=== PATIENT | female | born 1965 | race Two or more races ===

== ENCOUNTER → 2024-01-01 | Outpatient (CLI) | payer MEDICAID ==
[2024-01-01 15:20] LABS: Alanine Aminotransferase 13 U/L (7-40); Albumin 4.5 g/dL (3.2-4.8); Alkaline Phosphatase 81 U/L (46-116); Aspartate Aminotransferase 18 U/L (13-40); Bilirubin, Direct < 0.1 mg/dL (<0.3); Bilirubin, Total 0.3 mg/dL (0.2-1.0); Total Protein 7.4 g/dL (5.7-8.2)
== END | disposition home or self-care (01) ==
LOC: LAB 13:50
PROVIDERS: ATTEND Internal Medicine
DX: E78.5 Hyperlipidemia, unspecified (principal)
CPT/HCPCS: 36415; 80076

== ENCOUNTER → 2024-03-15 | Outpatient (CLI) | payer MEDICAID | END | disposition home or self-care (01) | LOC: Rad HDHVI 10:04 | PROVIDERS: ATTEND Internal Medicine Cardiovascular Disease | DX: I65.21 Occlusion and stenosis of right carotid artery (principal); I25.84 Coronary atherosclerosis due to calcified coronary lesion; R42 Dizziness and giddiness | CPT/HCPCS: 93880 ==

== ENCOUNTER → 2024-03-24 | Outpatient (CLI) | payer MEDICAID ==
[~2024-03-24] VITALS: Ht 167.6 cm; Wt 70.8 kg
== END | disposition home or self-care (01) ==
LOC: Rad HDHVI 08:32
PROVIDERS: ATTEND Internal Medicine Cardiovascular Disease
DX: Z13.0 Encounter for screening for diseases of the blood and blood-forming organs and certain disorders involving the immune mechanism (principal); R42 Dizziness and giddiness; E78.00 Pure hypercholesterolemia, unspecified; F17.210 Nicotine dependence, cigarettes, uncomplicated
CPT/HCPCS: 78452; 93017; 96374; A9500

== ENCOUNTER → 2024-04-13 | Outpatient (CLI) | payer MEDICAID | END | disposition home or self-care (01) | LOC: Rad HDHVI 09:04 | PROVIDERS: ATTEND Internal Medicine Cardiovascular Disease | DX: Z13.6 Encounter for screening for cardiovascular disorders (principal); I08.1 Rheumatic disorders of both mitral and tricuspid valves | CPT/HCPCS: 93306 ==

== ENCOUNTER 2024-11-19 07:30 | Emergency (ER) | payer MEDICAID ==
[~2024-11-19] VITALS: Ht 167.6 cm; Wt 67.8 kg
--- NOTE | 2024-11-19 07:50 | ED.PDOC ---
History of Present Illness(SKN HPI Comments 59Y F with PMHx HLD presents to ED for chief complaint pruritus of bilateral feet [id number]. Pt states she had a rash 4 years ago but has not had the rash since then. Now, pt states she has bumps on the lateral aspects of both feet and develops black spots after wearing lotion. Pt states she soaks her feet every morning and experiences mild relief of symptoms. Pt denies chest pain, SOB, n/v/d, and all other symptoms. Pt denies all pain with current pain level 0/10. Pt is being f/u by dermatology and infectious disease specialist, who have prescribed her an oral antifungal medication. No other symptoms reported. Chief Complaint: Rash Time Seen by MD: 07:40 History of Present Illness: Nurses Notes, Medications, Allergies Allergies: Coded Allergies: No Known Drug Allergy (Verified Allergy, Unknown, 03/24/24) Information Source: Patient Mode of Arrival: Ambulatory Severity: Mild Timing: Months Duration: Intermittent Prehospital treatment: None Location: Foot (bilateral) Mechanism: Spontaneous Onset Developed: Pruritus, Rash Occurence: Outdoors Object: None Retained Foreign Body: No Wound Type: None Immunization Status of Animal: NA Tetanus: UTD History of: None Associated Signs and Symptoms: Other Past Medical History PAST MEDICAL HISTORY: High Lipids Surgical History: Denies all surgeries SHANK STITCHER History: Denies all SHANK STITCHER Hx Family History Family History: Unknown Social History Smoker: Cigarettes Alcohol: Occasionally Drugs: Denies Drug Use Lives In: Home Constitutional: denies: chills, diaphoresis, fatigue, fever, malaise, sweats, weakness, others EENTM: denies: blurred vision, double vision, ear bleeding, ear discharge, ear drainage, ear pain, ear ringing, eye pain, eye redness, hearing loss, mouth pain, mouth swelling, nasal discharge, nose bleeding, nose congestion, nose pain, photophobia, tearing, throat pain, throat swelling, voice changes, others Respiratory: denies: cough, hemoptysis, orthopnea, SOB at rest, shortness of breath, SOB with excertion, stridor, wheezing, others Cardiovascular: denies: chest pain, dizzy spells, diaphoresis, Dyspnea on exertion, edema, irregular heart beat, left arm pain, lightheadedness, palpitations, PND, syncope, others Gastrointestinal: denies: abdomen distended, abdominal pain, blood streaked bowels, constipated, diarrhea, dysphagia, difficulty swallowing, hematemesis, melena, nausea, poor appetite, poor fluid intake, rectal bleeding, rectal pain, vomiting, others Genitourinary: denies: abnormal vagina bleeding, burning, dyspareunia, dysuria, flank pain, frequency, hematuria, incontinence, pain, , vagina discharge, urgency, others Neurological: denies: dizziness, fainting, headache, left sided numbness, left sided weakness, numbness, paresthesia, pre-existing deficit, right sided numbness, right sided weakness, seizure, speech problems, tingling, tremors, weakness, others Musculoskeletal: denies: back pain, gout, joint pain, joint swelling, muscle pain, muscle stiffness, neck pain, others Integumetry: reports: others (pruritus, bilateral feet intermittent rash); denies: bruises, change in color, change in hair/nails, dryness, laceration, lesions, lumps, rash, wounds Allergic/Immunocompromised: denies: Difficulty Healing, Frequent Infections, Hives, Itching, others Hematologic/Lymphatic: denies: anemia, blood clots, easy bleeding, easy bruising, swollen glands, others Endocrine: denies: excessive hunger, excessive sweating, excessive thirst, excessive urination, flushing, intolerance to cold, intolerance to heat, unexplained weight gain, unexplained weight loss, others Psychiatric: denies: anxiety, bipolar disorder, depression, hopeless, panic disorder, schizophrenia, sleepless, suicidal, others All Other Systems: Reviewed and Negative Physical Exam General Appearance: No Apparent Distress, Normal HEENT: Normal ENT Inspection, Pharynx Normal, TMs Normal Neck: Full Range of Motion, Non-Tender, Normal, Normal Inspection Respiratory: Chest Non-Tender, Lungs Clear, No Accessory Muscle Use, No Respiratory Distress, Normal Breath Sounds Cardiovascular: No Edema, No JVD, No Murmur, No Gallop, Normal Peripheral Pulses, Regular Rate/Rhythm Breast Exam: Deferred Gastrointestinal: No Organomegaly, Non Tender, No Pulsatile Mass, Normal Bowel Sounds, Soft Genitalia: Deferred Pelvic: Deferred Rectal: Deferred Extremities: No calf tenderness, Normal capillary refill, Normal inspection, Normal range of motion, Non-tender, No pedal edema Musculoskeletal : Apperance: Normal Neurologic: Alert, sole conforming machine operator II-XII nml as Tested, No Motor Deficits, Normal Affect, Normal Mood, No Sensory Deficits Cerebellar Function: Normal Reflexes: Normal Skin: Dry, Warm, Other (rt little toe: sligth hypopigment discoloration) Lymphatic: No Adenopathy Was a procedure done? Was a procedure done?: No Differential Diagnosis (INTG) Differential Diagnosis: Cellulitis, Hematoma, Insect Envenomation, Puncture Wound Differential Diagnosis: Atopic dermatitis, Candidiasis, Scabies, Tinea, Urticaria Differential Diagnosis: Abrasion, Contusion Differential Diagnosis: Retained Foreign Body, Other (morgellon's disease, onycomycosis) X-Ray, Labs, Meds, VS Vital Signs Date Time Temp Pulse Resp B/P (MAP) Pulse Ox O2 Delivery O2 Flow Rate FiO2 11/19/24 07:38 97.4 91 20 130/79 (96) 95 97.4 Time of 1ST Reevaluation: 08:10 Reevaluation 1ST: Unchanged Patient Education/Counseling: Diagnosis, Treatment, Prognosis, Need For Follow Up Family Education/Counseling: No Family Present Additional Information Previous visit documents reviewed: None The following tests were ordered, and results were reviewed by me: None Additional Information was gathered from interviewing the following independent historians: None I reviewed and agreed with the following test results read by other providers: None I discussed treatment and results with medical personnel and: Patient although Morgellon's Disease cannot be excluded, pt has one nail which appears to be fungal. i will start her on topical fungal treatment. ideally, oral medication is better for fungal nail infections, but this will have to be ordered by her PCP, as toxicity and monitoring is required Departure 1 Departure Time of Disposition: 07:55 Impression: Primary Impression: Onychomycosis Disposition: HOME / SELF CARE / HOMELESS Condition: Good e-Prescriptions Ketoconazole (Ketoconazole) 2 % Cre 1 APPLIC TOP BID for 14 Days, #60 GRAMS 1 Refill Prov: BEN CORTES MD 11/19/24 Discharged With: Self Critical Care Note Critical Care Time?: No Stability Stability form required: No Heart Score Heart Score: Heart Score Response (Comments) Value History N/A 0 EKG N/A 0 Age N/A 0 Risk Factors N/A 0 Troponin N/A 0 Total 0 I personally scribed for BEN CORTES MD ([facility]) on 11/19/24 at 07:50. Electronically submitted by Roseanne Irvin ([email or web address]). BEN CORTES MD Nov 19, 2024 07:50
[2024-11-19] MEDS ORDERED: KETO2CRE4 TOP (07:56)
[2024-11-19 08:10] VITALS: PULSE 90; RESP 16; O2SAT 98
[2024-11-19 08:11] VITALS: BP 130/78; PULSE 90; RESP 16; TEMP 97.5; O2SAT 98
== END 2024-11-19 08:12 | disposition home or self-care (01) ==
LOC: ER 07:30
DX: B35.1 Tinea unguium (principal); E78.5 Hyperlipidemia, unspecified; F17.210 Nicotine dependence, cigarettes, uncomplicated